=== PATIENT | male | born 1955 | race Caucasian/White ===

== ENCOUNTER 2016-05-24 16:32 | Emergency (ER) | payer OTHER ==
[~2016-05-24] VITALS: Ht 165.1 cm; Wt 75.0 kg
[2016-05-24 16:39] VITALS: Ht 165.1 cm; Wt 75.0 kg
[2016-05-24 20:16] LABS: ADD SCAN DIFF NO
[2016-05-24 20:25] LABS: BASOPHIL # 0.1 10^3/ul (0.0-0.1); BASOPHILS % 0.7 % (0.0-2.0); EOSINOPHILS # 0.4 10^3/ul (0.0-0.5); EOSINOPHILS % 4.1 % (0.0-7.0); HEMATOCRIT 43.8 % (42.0-52.0); HEMOGLOBIN 15.1 g/dl (14.0-18.0); LYMPHOCYTES % 32.8 % (15.0-51.0); MEAN CORPUSCULAR HGB CONC 34.5 g/dl (32.0-37.0); MEAN CORPUSCULAR VOLUME 84.1 fl (82.0-101.0); MEAN PLATELET VOLUME 11.3 fl (7.4-10.4); MONOCYTE # 0.8 10^3/ul (0.3-0.9); MONOCYTES % 8.1 % (0.0-11.0); NEUTROPHILS % 53.8 % (39.0-77.0); PLATELET COUNT 245 10^3/UL (140-415); RED BLOOD COUNT 5.21 10^6/ul (4.70-6.10); RED CELL DISTRIBUTION WIDTH 12.3 % (11.5-14.5); WHITE BLOOD COUNT 9.2 10^3/ul (4.8-10.8)
[2016-05-24 20:27] LABS: ALBUMIN 4.4 g/dl (3.3-4.9)
[2016-05-24 20:30] LABS: ALBUMIN/GLOBULIN RATIO 1.15; BILIRUBIN,INDIRECT 0.2 mg/dl (0-1.1); BILIRUBIN,TOTAL 0.2 mg/dl (0.2-1.3); CREATININE 0.58 mg/dl (0.61-1.24); TOTAL PROTEIN 8.2 g/dl (6.1-8.1)
[2016-05-24 20:31] LABS: CALCIUM 9.6 mg/dl (8.4-10.2)
--- NOTE | 2016-05-24 20:59 | ERA ---
ER Documentation Chief Complaint Date/Time DATE: 05/24/16 TIME: 20:52 Chief Complaint h/a and vomit x today HPI Patient is a 61-year-old male with a history of type 2 diabetes mellitus for complaints of getting dizzy for the past month. Dizziness is worse when he gets up or changes positions. Symptoms occur about 2 times per week. His last symptoms occurred about 2 days ago. No reason given as to why he is coming in now as opposed to earlier. Patient is currently not on any medications. Patient admits to not drinking enough water. Controlled type 2 diabetes mellitus with his diet. Does not check his blood sugar regularly. Denies any nausea, vomiting, diarrhea, headache, meningismus symptoms, fatigue, shortness of breath, chest pain, claudication symptoms, back pain, headache, decreased urine output, dysuria, hematuria, melena, or bleeding. Does not currently have a family provider denies smoking, recreational drug use, alcohol abuse. ROS All systems reviewed and are negative except as per history of present illness. Medications Home Meds Unable to Obtain Active Prescriptions or Reported Meds Allergies Allergies: Coded Allergies: No Known Allergy (Unverified , 05/24/16) PMhx/Soc History of Surgery: No Anesthesia Reaction: No Hx Neurological Disorder: No Hx Respiratory Disorders: No Hx Cardiac Disorders: No Hx Psychiatric Problems: No Hx Miscellaneous Medical Probl: Yes (DM) Hx Alcohol Use: No Hx Substance Use: No Hx Tobacco Use: No Smoking Status: Never smoker Physical Exam Vitals Vital Signs Date Time Temp Pulse Resp B/P Pulse Ox O2 Delivery O2 Flow Rate FiO2 05/24/16 16:39 98.9 80 20 156/82 97 Physical Exam Const: Alert pleasant in no acute distress Head: Atraumatic Eyes: Normal Conjunctiva ENT: Normal External Ears, Nose and Mouth. Neck: Full range of motion..~ No meningismus. Resp: Clear to auscultation bilaterally Cardio: Regular rate and rhythm, no murmurs Abd: Soft, non tender, non distended. Normal bowel sounds Skin: No petechiae or rashes Back: No midline or flank tenderness Ext: No cyanosis, or edema Neur: Awake and alert Psych: Normal Mood and Affect Result Diagram: 05/24/16200305/24/162003 Results 24 hrs Laboratory Tests Test 05/24/16 20:04 Alanine Aminotransferase (ALT/SGPT) 64IU/L Albumin 4.4g/dl Albumin/Globulin Ratio 1.15 Alkaline Phosphatase 122IU/L Anion Gap 19 Aspartate Amino Transf (AST/SGOT) 49IU/L Basophils # 0.110^3/ul Basophils % 0.7% Blood Urea Nitrogen 11mg/dl Calcium Level 9.6mg/dl Carbon Dioxide Level 26mmol/L Chloride Level 102mmol/L Creatinine 0.58mg/dl Direct Bilirubin 0.00mg/dl Eosinophils # 0.410^3/ul Eosinophils % 4.1% Globulin 3.80g/dl Glucose Level 197mg/dl Hematocrit 43.8% Hemoglobin 15.1g/dl Indirect Bilirubin 0.2mg/dl Lymphocytes # 3.010^3/ul Lymphocytes % 32.8% Mean Corpuscular Hemoglobin 29.0pg Mean Corpuscular Hemoglobin Concent 34.5g/dl Mean Corpuscular Volume 84.1fl Mean Platelet Volume 11.3fl Monocytes # 0.810^3/ul Monocytes % 8.1% Neutrophils # 5.010^3/ul Neutrophils % 53.8% Nucleated Red Blood Cells # 0.010^3/ul Nucleated Red Blood Cells % 0.0/100WBC Platelet Count 97924^3/UL Potassium Level 4.0mmol/L Red Blood Count 5.2110^6/ul Red Cell Distribution Width 12.3% Sodium Level 143mmol/L Total Bilirubin 0.2mg/dl Total Protein 8.2g/dl White Blood Count 9.210^3/ul Procedures/MDM Patient complaint of dizziness for the past month to year. Has a history of diabetes mellitus so we went ahead and got a glucose and a urine screen which were within normal limits. She had a CBC to check his hemoglobin hematocrit which is little low. At this time I do not believe that the patient is unstable or need of volume replacement. Patient currently has no imbalance, vertigo or dizziness. Patient advised to keep hydrated.Advising him to follow- up with the primary care provider and undergo further evaluation for other pathologies causing low hemoglobin and hematocrit levels. Patient is also requesting a multivitamin which I will prescribe him under his understanding that he still needs to see a primary care provider. Departure Condition: Stable Additional Instructions: Immediately contact her primary care provider to set up an appointment within the next 1-2 days. MJ PATEL PA-C May 24, 2016 20:59
[2016-05-24] MEDS ORDERED: POLY-VI-SOL WIT50 ML PO (21:03)
[2016-05-24 21:27] VITALS: PULSE 65; RESP 18; TEMP 98.4
[2016-05-24 22:19] VITALS: BP 178/92
== END 2016-05-24 22:19 | disposition home or self-care (01) ==
LOC: FTE 16:32
DX: R42 Dizziness and giddiness (principal); E11.9 Type 2 diabetes mellitus without complications
CPT/HCPCS: 80053; 85025; Z7502; 99283